=== PATIENT | male | born 1960 | race Two or more races ===

== ENCOUNTER 2017-06-28 10:38 | Emergency (ER) | payer MEDICAID ==
[~2017-06-28] VITALS: Ht 170.2 cm; Wt 83.9 kg
[2017-06-28 10:47] VITALS: BP_SYST 110
[2017-06-28] MEDS ORDERED: ACETAMINOPHEN/CODEINE 300 MG-30 MG TABLET PO ONE (11:00)
[2017-06-28 11:12] VITALS: BP_SYST 115
== END 2017-06-28 11:09 | disposition home or self-care (01) ==
LOC: SED 10:38
DX: K64.4 Residual hemorrhoidal skin tags (principal); I11.0 Hypertensive heart disease with heart failure; I50.9 Heart failure, unspecified
CPT/HCPCS: 99283; J7030